=== PATIENT | male | born 1995 | race Caucasian/White ===

== ENCOUNTER 2018-12-25 20:19 | Emergency (ER) | payer SELFPAY | END 2018-12-25 22:35 | disposition left against medical advice (07) | LOC: FTE 22:35 | DX: Z53.21 Procedure and treatment not carried out due to patient leaving prior to being seen by health care provider (principal) ==

== ENCOUNTER 2019-05-11 22:22 | Emergency (ER) | payer OTHER ==
[2019-05-11] MEDS: SOD CHLORIDE 0.9% 1,000 ML IV (22:41)
[2019-05-11] MEDS: morphine 10 MG INJ IV (22:43)
[2019-05-11] MEDS: DIPHTH/TET/ACEL PERTUSS (ADULT) 0.5 ML VIAL IM* (22:43)
[2019-05-11] MEDS: KETOROLAC 30 MG INJ IV (23:20)
[2019-05-12] MEDS: BACITRACIN/POLYMYXIN 28.35 GM OINT TOP ×2 (00:16)
== END 2019-05-12 00:23 | disposition home or self-care (01) ==
LOC: E/R 05-12 00:23
DX: T21.22XA Burn of second degree of abdominal wall, initial encounter (principal); J45.909 Unspecified asthma, uncomplicated; F17.210 Nicotine dependence, cigarettes, uncomplicated; X12.XXXA Contact with other hot fluids, initial encounter; Y92.9 Unspecified place or not applicable; Z23 Encounter for immunization
CPT/HCPCS: 90471; 90715; 96374; 96375; 99284-25